=== PATIENT | male | born 1995 | race African-American/Black ===

== ENCOUNTER 2018-04-03 12:07 | Emergency (ER) | payer SELFPAY ==
[2018-04-03] MEDS ORDERED: Proparacaine 0.5% Ophth Soln 15 ML Bottle EYELF ONE (12:28)
--- NOTE | 2018-04-03 12:31 | EDM.PDOC ---
ED HPI GENERAL MEDICAL PROBLEM - General Chief Complaint: Eye Problems Stated Complaint: LT EYE PAIN Time Seen by Provider: 04/03/18 12:24 - History of Present Illness INITIAL COMMENTS - FREE TEXT/NARRATIVE: HISTORY AND PHYSICAL: History of present illness: The patient is a healthy 23-year-old male who presents with a one-week history of left eye discomfort itching drainage and tearing. 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 He said the symptoms have been gradual in onset and when he woke this morning his eye was matted with drainage and laid is now bothering his eyes. He does not wear glasses or contact lenses and has no head neck vein no fevers no chills and no systemic complaints. Patient says his eye feels very itchy and it is painful to open. Review of systems: As per history of present illness and below otherwise all systems reviewed and negative. Past medical history: As per history of present illness and as reviewed below otherwise noncontributory. Surgical history: As per history of present illness and as reviewed below otherwise noncontributory. Social history: No reported history of drug or alcohol abuse. Family history: As per history of present illness and as reviewed below otherwise noncontributory. Physical exam: General: Well-developed well-nourished man who is nontoxic and vital signs have been reviewed by me. Patient prefers to keep his left eye shut but is able to open it HEENT: Atraumatic, normocephalic, pupils reactive, there is photophobia of the left eye with exam, there is scleral injection and conjunctival injection with some crusting seen on the eyelid margins, EOMs are intact, negative for conjunctival pallor or scleral icterus, mucous membranes moist, throat clear, neck supple, nontender, trachea midline. Please see below for fluoroscein stain Lungs: Clear to auscultation, breath sounds equal bilaterally, chest nontender. Heart: S1S2, regular rate and rhythm no overt murmurs Abdomen: Soft, nondistended, nontender. NABS Pelvis: Deferred Genitourinary: Deferred. Rectal: Deferred. Extremities: Atraumatic, negative for cords or calf pain. Neurovascular unremarkable. Neuro: Awake, alert, oriented. Cranial nerves II through XII unremarkable. Cerebellum unremarkable. Motor and sensory unremarkable throughout. Exam nonfocal. Diagnostics: Visual acuity per nursing--20/13 both eyes and 20/15 left eye, the affected eye Therapeutics: Proparacaine After proparacaine was instilled into the left eye, fluoroscein stain was performed with a punctate uptake/foreign body seen at the 2 o'clock position on the rim of the iris. There is diffuse punctate uptake elsewhere but this is very discrete but no foreign body can be seen on gross visual exam. Fluoroscein was irrigated out Dr Gonzales was contacted and is unavailable to come to the phone but I discussed the case with his nurse and the patient will be seen today at 2 PM. I discussed with the patient the need to see the dyslexia teacher as if there is truly a foreign body and is been there for over a week he needs to be removed formally. Impression: Eye pain/injection and drainage 1 week, possible foreign body of left eye Definitive disposition and diagnosis as appropriate pending reevaluation and review of above. Left Eye Pain Score (Numeric/FACES): 7 - Related Data Allergies Allergy/AdvReac Type Severity Reaction Status Date / Time No Known Allergies Allergy Verified 04/03/18 12:17 Home Meds: Home Meds . [No Known Home Meds] 04/03/18 [History] Past Medical History - Past Health History Medical/Surgical History: Denies Medical/Surgical History - Infectious Disease History Infectious Disease History: Reports: None Social & Family History - Family History Family Medical History: Noncontributory - Tobacco Use Years of Tobacco use: 4 - Caffeine Use Caffeine Use: Reports: Soda - Alcohol Use Days Per Week of Alcohol Use: 1 Number of Drinks Per Day: 2 Total Drinks Per Week: 2 - Recreational Drug Use Recreational Drug Use: No ED ROS GENERAL - Review of Systems Review Of Systems: ROS reveals no pertinent complaints other than HPI. ED EXAM GENERAL W FULL EYE - Physical Exam Exam: See Below (See dictation) Course - Vital Signs Last Recorded V/S: Last Vital Signs Temp 36.2 C 04/03/18 12:17 Pulse 75 04/03/18 12:17 Resp 16 04/03/18 12:17 BP 135/69 04/03/18 12:17 Pulse Ox 97 04/03/18 12:17 - Orders/Labs/Meds Orders: Active Orders 24 hr Category Date Time Status Communication Order [RC] STAT Care 04/03/18 12:28 Active Meds: Medications Discontinued Medications Generic Name Dose Route Start Last Admin Trade Name Chuck PRN Reason Stop Dose Admin Proparacaine HCl 1 ml 04/03/18 12:28 04/03/18 12:34 Proparacaine 0.5% Ophth Soln EYELF 04/03/18 12:29 1 ml ONETIME ONE Administration Departure - Departure Time of Disposition: 12:45 Disposition: Home, Self-Care 01 Condition: Good Clinical Impression: Left eye pain Foreign body in eye Qualifiers: Encounter type: initial encounter Laterality: left Qualified Code(s): T15.92XA - Foreign body on external eye, part unspecified, left eye, initial encounter - Discharge Information Referrals: PCP,None [Primary Care Provider] - Forms: ED Department Discharge Additional Instructions: The following information is given to patients seen in the emergency department who are being discharged to home. This information is to outline your options for follow-up care. We provide all patients seen in our emergency department with a follow-up referral. The need for follow-up, as well as the timing and circumstances, are variable depending upon the specifics of your emergency department visit. If you don't have a primary care physician on staff, we will provide you with a referral. We always advise you to contact your personal physician following an emergency department visit to inform them of the circumstance of the visit and for follow-up with them and/or the need for any referrals to a consulting specialist. The emergency department will also refer you to a specialist when appropriate. This referral assures that you have the opportunity for followup care with a specialist. All of these measure are taken in an effort to provide you with optimal care, which includes your followup. Under all circumstances we always encourage you to contact your private physician who remains a resource for coordinating your care. When calling for followup care, please make the office aware that this follow-up is from your recent emergency room visit. If for any reason you are refused follow-up, please contact the [facility] emergency department at and ask to speak to the emergency department charge nurse. [address] [id number] Please go to the ophthalmology clinic to be seen by Dr. Gonzales at 2 PM. Please arrived there 10-15 minutes early to register. Please avoid bright sunlight until you're seen by him and try to avoid rubbing or irritating the eye. Return to ER as needed and as discussed - My Orders Last 24 Hours: My Active Orders 04/03/18 12:28 Communication Order [RC] STAT - Assessment/Plan Last 24 Hours: My Active Orders 04/03/18 12:28 Communication Order [RC] STAT
== END 2018-04-03 13:01 | disposition home or self-care (01) ==
LOC: MW.ED 12:07
DX: T15.02XA Foreign body in cornea, left eye, initial encounter (principal)
CPT/HCPCS: 99283